=== PATIENT | female | born 1990 | race Caucasian/White ===

== ENCOUNTER → 2016-12-09 | Outpatient (CLI) | payer OTHER | END | disposition home or self-care (01) | LOC: C.RDSM 13:51 | PROVIDERS: ATTEND Family Medicine Sports Medicine | DX: M25.519 Pain in unspecified shoulder (principal) ==

== ENCOUNTER → 2017-09-03 | Outpatient (CLI) | payer OTHER ==
[~2017-09-03] MED LIST: OPTIRAY 320 IV PRN
--- NOTE | 2017-09-03 08:23 | DIAGNOSTIC IMAGING REPORT ---
ABD/PELVIS IV AND ORAL CONT CT DOSE: 577.87 mGy.cm HISTORY: Follow-up COLON POLYP TECHNIQUE: Multiaxial CT images of the abdomen and pelvis were performed following the use of intravenous and oral contrast. A dose lowering technique was utilized adhering to the principles of ALARA. COMPARISON STUDY: None. FINDINGS: The lung bases are clear. The liver, spleen, gallbladder, pancreas, kidneys, and adrenal glands are within normal limits. No bowel wall thickening or obstruction. The pelvic organs are unremarkable. No suspicious lytic or blastic osseous lesions. Surgical clips are noted in the proximal sigmoid. 2 cm left ovarian cyst. IMPRESSION: 1. Surgical clips of the proximal sigmoid.. 2. 2 cm left ovarian cyst. 3. Otherwise negative study. The above report was generated using voice recognition software. It may contain grammatical, syntax or spelling errors. Electronically signed by: Ever Garvey M.D. 09/03/2017 8:21 AM Dictated Date/Time: 09/03/2017 8:16 AM
== END | disposition home or self-care (01) ==
LOC: C.CTS 07:44
PROVIDERS: ATTEND Internal Medicine Gastroenterology
DX: K63.5 Polyp of colon (principal); N83.202 Unspecified ovarian cyst, left side